=== PATIENT | female | born 1995 | race Caucasian/White ===

== ENCOUNTER 2024-08-13 20:38 | Emergency (ER) | payer SELFPAY ==
--- NOTE | 2024-08-13 21:20 | ER ---
Nurse's Notes [facility] [place] Name: Shilpa Beltran Age: 28 yrs Sex: Female : 1995 Arrival Date: 08/13/2024 Time: 20:38 Bed IW8 Private MD: Diagnosis: Encounter for examination and observation for unspecified reason-left ear check for foreign body Presentation: 08/13 20:59 Chief complaint: Patient states: I broke a q tip off in my ear while attempting to bm8 clean it. Coronavirus screen: At this time, the client does not indicate any symptoms associated with coronavirus-19. Ebola Screen: Patient negative for fever greater than or equal to 101.5 degrees Fahrenheit, and additional compatible Ebola Virus Disease symptoms Patient denies exposure to infectious person. Patient denies travel to an Ebola-affected area in the 21 days before illness onset. No symptoms or risks identified at this time. Initial Sepsis Screen: Does the patient meet any 2 criteria? No. Patient's initial sepsis screen is negative. Does the patient have a suspected source of infection? No. Patient's initial sepsis screen is negative. Risk Assessment: Do you want to hurt yourself or someone else? Patient reports no desire to harm self or others. Onset of symptoms was August 13, 2024 at 19:00. 20:59 Method Of Arrival: Ambulatory bm8 20:59 Acuity: RYAN 5 bm8 Triage Assessment: 21:00 General: Appears in no apparent distress. comfortable, Behavior is calm, cooperative, bm8 appropriate for age. Pain: Complains of pain in left ear Pain currently is 1 out of 10 on a pain scale. EENT: Ear canal w/ foreign body noted from left ear Reports decreased hearing. Neuro: No deficits noted. Level of Consciousness is awake, alert, obeys commands, Oriented to person, place, time, situation, Appropriate for age. Cardiovascular: Denies chest pain, Capillary refill < 3 seconds in bilateral fingers Patient's skin is warm and dry. Respiratory: Airway is patent Trachea midline Respiratory effort is even, unlabored, Respiratory pattern is regular, symmetrical, Breath sounds are clear bilaterally. GI: No signs and/or symptoms were reported involving the gastrointestinal system. : No signs and/or symptoms were reported regarding the genitourinary system. Derm: No signs and/or symptoms reported regarding the dermatologic system. Musculoskeletal: No signs and/or symptoms reported regarding the musculoskeletal system. 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 - Infectious Disease History:: Denies. - Social history:: Smoking status: Reported history of juuling and/or vaping. Patient/guardian denies using alcohol, street drugs. Screenin:46 [facility] ED Fall Risk Assessment (Adult) History of falling in the last 3 months, lg3 including since admission No falls in past 3 months (0 pts) Confusion or Disorientation No (0 pts) Intoxicated or Sedated No (0 pts) Impaired Gait No (0 pts) Mobility Assist Device Used No (0 pt) Altered Elimination No (0 pt) Score/Fall Risk Level 0 - 2 = Low Risk Oriented to surroundings, Maintained a safe environment, Educated pt \T\ family on fall prevention, incl call for assistance when getting out of bed, Assessed \T\ reinforced patient's understanding of fall precautions. Abuse screen: Denies threats or abuse. Denies injuries from another. Nutritional screening: No deficits noted. Tuberculosis screening: No symptoms or risk factors identified. Assessment: 22:46 General: Appears in no apparent distress. comfortable, Behavior is calm, cooperative. lg3 Pain: Denies pain. Neuro: No deficits noted. Hazel Agitation-Sedation Scale (RASS): 0 - Alert and Calm Level of Consciousness is awake, alert, obeys commands, Oriented to person, place, time, situation. Cardiovascular: No deficits noted. Denies chest pain, shortness of breath, Capillary refill < 3 seconds Clubbing of nail beds is absent JVD is absent Patient's skin is warm and dry. Respiratory: No deficits noted. Airway is patent Respiratory effort is even, unlabored, Respiratory pattern is regular, symmetrical. GI: No deficits noted. No signs and/or symptoms were reported involving the gastrointestinal system. : No signs and/or symptoms were reported regarding the genitourinary system. EENT: Ear canal clear on left ear Reports foreign object in left ear. Derm: No deficits noted. No signs and/or symptoms reported regarding the dermatologic system. Skin is intact, is healthy with good turgor, Skin is dry, Skin is normal, Skin temperature is warm. Musculoskeletal: No deficits noted. No signs and/or symptoms reported regarding the musculoskeletal system. Circulation, motion, and sensation intact. Range of motion: intact in all extremities. Vital Signs: 20:59 BP 124 / 88; Pulse 70; Resp 18; Temp 98.4; Pulse Ox 100% ; Weight 68.04 kg; Height 5 bm8 ft. 3 in. ; Pain 1/10; 22:46 BP 119 / 89; Pulse 81; Resp 17 S; Temp 98.1(O); Pulse Ox 100% on R/A; Pain 0/10; lg3 20:59 Body Mass Index 26.57 (68.04 kg, 160.02 cm) bm8 20:59 Pain Scale: Adult bm8 22:46 Pain Scale: Adult lg3 ED Course: 20:40 Patient arrived in ED. im 20:46 Buddy Hamilton PA is PHCP. cp 20:46 Chandler Hyatt MD is Attending Physician. cp 21:00 Triage completed. bm8 21:00 Arm band placed on right wrist. bm8 21:18 Celina Alexis MD is Referral Physician. cp 22:46 Patient has correct armband on for positive identification. lg3 22:46 No provider procedures requiring assistance completed. Patient did not have IV access lg3 during this emergency room visit. Administered Medications: No medications were administered Medication: 22:46 VIS not applicable for this client. lg3 Outcome: 21:20 Discharge ordered by . cp 22:46 Discharged to home ambulatory, lg3 22:46 Condition: stable 22:46 Discharge instructions given to patient, Instructed on discharge instructions, follow up and referral plans. Demonstrated understanding of instructions, follow-up care, 22:48 Patient left the ED. lg3 Signatures: Buddy Hamilton PA PA cp Able, Lacie, RN RN lg3 Makenzie Henriquez Brad RN RN bm8
--- NOTE | 2024-08-13 21:20 | EDPHYS ---
Physician Documentation [facility] Name: Shilpa Beltran Age: 28 yrs Sex: Female : 1995 Arrival Date: 08/13/2024 Time: 20:38 Bed IW8 Private MD: ED Physician Chandler Hyatt HPI: 08/13 21:14 This 28 yrs old Female presents to ER via Ambulatory with complaints of Foreign Body In cp Ear - Qtip. 21:14 The patient presents with a foreign body sensation, head of q-tip. The complaints cp affect the left ear canal. Onset: The symptoms/episode began/occurred today. Associated signs and symptoms: The patient has no apparent associated signs or symptoms. 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 - Infectious Disease History:: Denies. - Social history:: Smoking status: Reported history of juuling and/or vaping. Patient/guardian denies using alcohol, street drugs. ROS: 21:15 Constitutional: Negative for body aches, chills, fever, poor PO intake, cp 21:15 ENT: Positive for left ear canal foreign body sensation, Negative for ear pain, sore throat, difficulty swallowing, difficulty handling secretions, 21:15 Respiratory: Negative for cough, shortness of breath, wheezing, 21:15 Abdomen/GI: Negative for abdominal pain, nausea, vomiting, and diarrhea, 21:15 Neuro: Negative for altered mental status, dizziness, headache, weakness, 21:15 All other systems are negative, Exam: 21:15 Head/Face: Normocephalic, atraumatic. cp 21:15 Constitutional: The patient appears in no acute distress, alert, awake, non-toxic, well developed, well nourished, 21:15 Eyes: Periorbital structures: appear normal, Conjunctiva: normal, no exudate, no injection, Sclera: no appreciated abnormality, Lids and lashes: appear normal, bilaterally, 21:15 ENT: External ear(s): are unremarkable, Ear canal(s): foreign body, is not appreciated, mild cerumen noted bilaterally with no impaction or obstruction of TMs and/or canal, TM's: dullness, bilaterally, Nose: is normal, Mouth: Lips: moist, Oral mucosa: moist, Posterior pharynx: Airway: no evidence of obstruction, patent, 21:15 Chest/axilla: Inspection: normal, 21:15 Cardiovascular: Rate: normal, cp 21:15 Respiratory: the patient does not display signs of respiratory distress, Respirations: cp normal, no use of accessory muscles, no retractions, labored breathing, is not present, Breath sounds: are clear throughout, Vital Signs: 20:59 BP 124 / 88; Pulse 70; Resp 18; Temp 98.4; Pulse Ox 100% ; Weight 68.04 kg; Height 5 bm8 ft. 3 in. ; Pain 1/10; 22:46 BP 119 / 89; Pulse 81; Resp 17 S; Temp 98.1(O); Pulse Ox 100% on R/A; Pain 0/10; lg3 20:59 Body Mass Index 26.57 (68.04 kg, 160.02 cm) bm8 20:59 Pain Scale: Adult bm8 22:46 Pain Scale: Adult lg3 MDM: 21:14 Medical Screening Exam initiated cp 21:15 Differential diagnosis: otitis media, otitis externa, ruptured TM, foreign body, cp cerumen impaction. 21:20 Data reviewed: vital signs, nurses notes, and as a result, I will discharge patient. cp 21:20 Counseling: I had a detailed discussion with the patient and/or guardian regarding the cp historical points, exam findings, and any diagnostic results supporting the discharge/admit diagnosis, to return to the emergency department if symptoms worsen or persist or if there are any questions or concerns that arise at home. Administered Medications: No medications were administered Disposition: 08/14 17:40 Chart complete. cp Disposition Summary: 08/13/24 21:20 Discharge Ordered Notes: Location: Home cp Problem: new cp Symptoms: have improved cp Condition: Stable cp Diagnosis - Encounter for examination and observation for unspecified reason - left ear check cp for foreign body Followup: cp - With: Celina Alexis MD - When: 2 - 3 days - Reason: Worsening of condition Discharge Instructions: - Discharge Summary Sheet cp - Medical Screening Exam cp Forms: - Medication Reconciliation Form cp - Antibiotic Education cp - Prescription Opioid Use cp - Patient Portal Instructions cp - Leadership Thank You Letter cp Addendum: 08/15/2024 03:35 I was immediately available for consultation during this patient's visit. I did not e c2 personally see the patient or discuss the patient with the JERRY. . Signatures: Buddy Hamilton PA PA cp Corral, Edwin, MD MD ec2 Francesco Sloan RN RN bm8
[2024-08-14 00:54] VITALS: BP 124/88; TEMP 98.4; O2SAT 100
== END 2024-08-13 22:48 | disposition home or self-care (01) ==
LOC: ER 20:38
DX: Z71.1 Person with feared health complaint in whom no diagnosis is made (principal)
CPT/HCPCS: 99283